=== PATIENT | female | born 1990 | race Hispanic/Latino ===

== ENCOUNTER 2020-07-08 13:33 | Emergency (ER) | payer SELFPAY ==
[~2020-07-08] VITALS: Ht 154.9 cm; Wt 81.6 kg
[2020-07-08] MEDS ORDERED: DEXAMETHASONE SOD PHOS INJ 4 MG/ML VIAL IV ONE (14:00)
[2020-07-08] MEDS ORDERED: DEXAMETHASONE SOD PHOS 10 MG/1 ML VIAL IM ONE (14:00)
[2020-07-08] MEDS ORDERED: DEXAMETHASONE SOD PHOS INJ 4 MG/ML VIAL ONE (14:40)
[2020-07-08] MEDS ORDERED: VENTOLIN HFA18 GM INH (14:43)
[2020-07-08] MEDS ORDERED: AZITHROMYCIN250 MG PO (14:43)
[2020-07-08] MEDS ORDERED: PREDNISONE20 MG PO (14:43)
== END 2020-07-08 14:47 | disposition home or self-care (01) ==
LOC: FSED 13:55
DX: R07.89 Other chest pain (principal); Z20.822 Contact with and (suspected) exposure to COVID-19; R43.9 Unspecified disturbances of smell and taste; R05 Cough; R53.81 Other malaise; R06.02 Shortness of breath
CPT/HCPCS: 71045; 93005; 99283; J1100